=== PATIENT | female | born 1955 | race Caucasian/White ===

== ENCOUNTER 2017-02-18 14:59 | Emergency (ER) | payer OTHER ==
[~2017-02-18] VITALS: Ht 154.9 cm; Wt 65.9 kg
[2017-02-18] MEDS ORDERED: OMEP40CA6 PO (16:06)
[2017-02-18] MEDS ORDERED: OXYC1TAB7 PO (16:08)
[2017-02-18] MEDS ORDERED: TEMA30CA PO (16:08)
[2017-02-18] MEDS ORDERED: ONDA8TAB16 SL (16:08)
[2017-02-18] MEDS ORDERED: SODIUM CHLORIDE 0.9% 1,000ML IVBOLUS ONE (16:30)
[2017-02-18] MEDS ORDERED: ONDANSETRON 2MG/ML, 2ML IVPush ONE (16:30)
[2017-02-18] MEDS ORDERED: SODIUM CHLORIDE FLUSH 10ML SYR IVF ONE (16:30)
[2017-02-18] MEDS ORDERED: MORPHINE SULFATE 4 MG/ML, 1ML ONE ×2 (17:03→17:54)
[2017-02-18] MEDS ORDERED: ONDANSETRON 2MG/ML, 2ML ONE (17:03)
[2017-02-18] MEDS: MORPHINE SULFATE 4 MG/ML, 1ML IVPush PRN ×2 (17:06→18:00)
[2017-02-18 17:35] LABS: BLOOD UREA NITROGEN 10 mg/dL (7-18)
[2017-02-18 17:40] LABS: ASPARTATE AMINO TRANSFERASE 17 U/L (15-37)
[2017-02-18 19:43] VITALS: BP 127/86
[2017-02-18] MEDS ORDERED: OMNIPAQUE 350 MG/ML, 100ML BOTTLE ONE (19:52)
== END 2017-02-18 19:46 | disposition home or self-care (01) ==
LOC: ED 17:03
DX: R10.13 Epigastric pain (principal); R11.2 Nausea with vomiting, unspecified; R19.7 Diarrhea, unspecified; C34.90 Malignant neoplasm of unspecified part of unspecified bronchus or lung
CPT/HCPCS: 36415; 74177; 80053; 83690; 85025; 96361; 96374; 96375; 96376; 99285; J2405; J7030; Q9967